=== PATIENT | male | born 1980 | race Two or more races ===

== ENCOUNTER 2024-07-22 14:47 | Emergency (ER) | payer BC, SELFPAY ==
[2024-07-22 14:50] VITALS: BMI 30.9
[2024-07-22 15:34] VITALS: BP 132/88; PULSE 98; RESP 20; TEMP 36.8; O2SAT 96
--- NOTE | 2024-07-22 15:58 | XR_ITS ---
Examination: Shoulder,left, 3 views Technique: Shoulder AP internal rotation, AP external rotation, Y view shoulder, 3 views Exam date and time :July 22, 2024 1600 hrs. Indications: Left shoulder pain beginning 6 months ago. Findings: No shoulder fracture or dislocation Mild narrowing glenohumeral joint No AC joint separation Impression: Mild narrowing glenohumeral joint
--- NOTE | 2024-07-22 15:59 | EDNOTE_ITS ---
Upper Extremity Injury RME/HPI General Chief Complaint: Extremity Injury, Upper Stated Complaint: LEFT SHOULDER PAIN Time Seen by Provider: 07/22/24 15:13 Arrival date/time: 07/22/24 14:47 43-year-old male reports with complaints of 3-month history of left shoulder pain that worsened this morning. Patient does not recall trauma or injury denies numbness tingling decreased range of motion or weakness of the limb. He reports severe pain with abduction and flexion of the shoulder. He denies taking any pain medicines for symptoms Limitations: no limitations Related Data Previous Rx's ?Medication ?Instructions ?Recorded ibuprofen 800 mg tablet 800 mg PO TID PRN pain #30 t abs 07/22/24 Allergies Allergy/AdvReac Type Severity Reaction Status Date / Time No Known Allergies Allergy Verified 07/22/24 14:50 Review of Systems Constitutional Constitutional: Denies chills and Denies fever(s) ENT Ears, Nose, Mouth, and Throat: Denies neck pain Musculoskeletal Musculoskeletal: Reports arthralgias, Denies deformity, Denies joint swelling, Reports limited range of motion, Denies muscle weakness, Denies neck pain, Denies numbness and Denies tingling Integumentary/Breasts Skin/Breast: Denies unusual bruising and Denies wounds Neurologic Neurologic: Denies numbness and Denies tingling Hematologic/Lymphatic Hematologic/Lymphatic: Denies easy bleeding and Denies easy bruising Past Medical History Social History SMOKING STATUS: Never smoker ED Exam General Limitations: Present no limitations General appearance: Present alert and in no apparent distress Extremities Exam Extremities exam: Present other (left shoulder with no e/e/e or defomity noted, mild ttp subacromial bursa, will no abduct or flex shoulder secondary to pain, pulses/reflexes 2+, sensory intact, strength 5/5) Neurological Exam Neurological exam: Present alert, oriented X3 and CN II-XII intact Psychiatric Psychiatric exam: Present normal affect and normal mood Skin Skin exam: Present warm, dry, intact and normal color Course Course Course Narrative: X-rays negative for fractures or dislocations of the left shoulder Quality Measures none Orders Category Date Time Status XR shoulder LT min 2V Stat Exams 07/22/24 15:58 Taken Ketorolac Inj [Toradol Inj] Med 07/22/24 16:08 Once 30 mg IM X1 ONE Vital Signs Vital signs: Vital Signs Temperature 98.3 F 07/22/24 15:34 Pulse Rate 98 07/22/24 15:34 Respiratory Rate 20 07/22/24 15:34 Blood Pressure 132/88 H 07/22/24 15:34 Pulse Oximetry (%) 96 07/22/24 15:34 Oxygen Delivery Method Room Air 07/22/24 15:34 Extremity Injury Patient data External records reviewed:: None Clinical information provided by:: patient Social determinants that could affect healthcare access:: none Patient has the following chronic illnesses:: none How is presenting disease/condition affected by chronic disease/condition?: no chronic disease Evaluation data The following diagnostics were reviewed and interpreted by me:: radiology ex am(s) Lab and/or radiology exams considered but not ordered:: none Interpretation Summary: negative for fx or dislocation Medications / Prescriptions Medications or Prescriptions considered but not ordered:: none Medication administrations:: Toradol 30 mg IM Consultations Consultation(s) initiated? (list below): No Diagnosis Upper Extremity Injury Differential Diagnosis: dislocation of shoulder, fracture of humerus and fracture of clavicle Most likely diagnosis given after review of the tests above:: Left shoulder strain Admission Indicated Admission indicated?: not indicated Admission Request Was there a request for admission?: No Disposition Plan Disposition Plan: Discharge Discharge Attestation Discharge Attestation: The patient and all family members were given an opportunity to ask questions and understood the discharge instructions. Discharge instructions specifically effects, indications for sooner follow up or return to the emergency department, and the expected course of current diagnosis. Patient condition: Stable Discharge Plan Plan Patient Disposition: HOME (Self Care) Prescriptions/Referrals Prescriptions/Med Rec: New ibuprofen 800 mg tablet 800 mg PO TID PRN (Reason: pain) Qty: 30 0RF Problem List Clinical Impression: Acute pain of left shoulder Patient/Caregiver Discharge Instructions Discharge Activity: activity as tolerated Education Materials: ED LENARD Wrap, ED RICE Additional Instructions: Your x-ray does not show any breaks or dislocations of the shoulder you should apply ice with a towel for 20 minutes 2 or 3 times a day take medication as directed and follow-up with your primary care provider for further evaluation Print Language: [place] Stand Alone Forms: [employer] Award Info., Patient Portal Info Letter
[2024-07-22] MEDS: KETOROLAC INJ 60 MG/2 ML VIAL 30 MG IM (16:30)
== END 2024-07-22 16:39 | disposition home or self-care (01) ==
PROVIDERS: Emergency Provider Emergency Medicine
DX: M25.512 Pain in left shoulder (principal)
CPT/HCPCS: 73030; 96372; 99283; J1885